=== PATIENT | male | born 1970 | race Caucasian/White ===

== ENCOUNTER 2019-03-12 18:53 | Emergency (ER) | payer BC, MEDICAID, SELFPAY ==
[~2019-03-12] VITALS: Ht 182.9 cm; Wt 101.9 kg
[2019-03-12] MEDS ORDERED: ADHD MED (18:58)
[2019-03-12] MEDS ORDERED: METH750T87 PO (18:58)
[2019-03-12] MEDS ORDERED: DICL50TA2 PO (18:58)
--- NOTE | 2019-03-12 19:00 | NUR ---
PT AWARE OF SHORT WAIT, AWARE TO BE NPO, GIVEN URINE CUP
--- NOTE | 2019-03-12 19:50 | NUR ---
TO ROOM FROM TRIAGE
--- NOTE | 2019-03-12 20:12 | NUR ---
LLQ/SCROTAL PAIN NOTED AFTER LIFTING FREZZER. DID NOT FEEL A POP WITH EXAM NO SWELLING/DISCOLORATION/NO PALPABLE INGUINAL HERNIA NOTED
[2019-03-12] MEDS ORDERED: KETOROLAC 30 MG/1 ML ONE (20:24)
[2019-03-12] MEDS ORDERED: KETOROLAC 30 MG/1 ML IM ONE (20:30)
[2019-03-12 20:57] LABS: CULTURE INDICATED? NO; MICROSCOPIC NOT IND
[2019-03-12 21:15] VITALS: BP 138/79
--- NOTE | 2019-03-12 21:30 | NUR ---
TESTING RESULTS REVIEWED WITH PATIENT BY PROVIDER. PATIENT REPORTS PAIN IMPROVED TO 4/10
== END 2019-03-12 21:51 | disposition home or self-care (01) ==
LOC: ED 21:18
DX: S39.011A Strain of muscle, fascia and tendon of abdomen, initial encounter (principal); F90.9 Attention-deficit hyperactivity disorder, unspecified type; F17.200 Nicotine dependence, unspecified, uncomplicated; X50.0XXA Overexertion from strenuous movement or load, initial encounter; Y93.89 Activity, other specified; Y92.89 Other specified places as the place of occurrence of the external cause; Y99.8 Other external cause status
CPT/HCPCS: 76870; 81003; 96372; 99284; J1885

== ENCOUNTER 2019-04-17 22:55 | Emergency (ER) | payer BC ==
[~2019-04-17] VITALS: Ht 182.9 cm; Wt 106.1 kg
[~2019-04-17 22:55] MED LIST: ADHD MED; DICL50TA2 PO; METH750T87 PO
[2019-04-17 22:59] VITALS: BP 140/86
[2019-04-18] MEDS ORDERED: HYDROmorphone 1 MG/ML, 1ML INJ IM ONE (00:30)
[2019-04-18] MEDS ORDERED: METHOCARBAMOL 750 MG TABLET PO ONE (00:30)
--- NOTE | 2019-04-18 00:32 | NUR ---
Patient reports having back pain which radiated to his groin. Pt with hx of back pain does have an appointment with a "spine doctor" April 27. Denies loss of bowel or bladder function. Resting in bed with constant steady hot pain in lower back.
[2019-04-18] MEDS ORDERED: METHOCARBAMOL 750 MG TABLET ONE (00:55)
[2019-04-18] MEDS ORDERED: HYDROmorphone 1 MG/ML, 1ML INJ ONE (00:56)
--- NOTE | 2019-04-18 01:03 | NUR ---
Patient medicated per order. is en route to pick remover patient. Patient resting in bed NAD noted.
--- NOTE | 2019-04-18 01:41 | NUR ---
Patient reports pain has improved. Pain is 3/10
--- NOTE | 2019-04-18 01:44 | NUR ---
Patient discharged home, discharge instructions provided all questions and concerns addressed. AA&O x 4, speech clear, NAD noted. Ambulatory with steady gait. pending 's arrival. Agreed to sit in the lobby and wait. All patient belongings went with patient
== END 2019-04-18 01:48 | disposition home or self-care (01) ==
LOC: ED 04-18 00:21
DX: M54.5 Low back pain (principal); F17.200 Nicotine dependence, unspecified, uncomplicated
CPT/HCPCS: 96372; 99283; J1170